=== PATIENT | male | born 1965 | race Caucasian/White ===

== ENCOUNTER 2017-11-03 09:40 | Day surgery (SDC) | payer OTHER ==
[~2017-11-03 09:40] MED LIST: LIDOCAINE 2% MDV 20 ML VIAL As Ordered; PROPOFOL 200 MG/20 ML VIAL As Ordered
[2017-11-03] MEDS: NS 1,000 ML IV (10:10)
== END 2017-11-03 11:45 | disposition home or self-care (01) ==
LOC: M OPP 09:40
DX: Z12.11 Encounter for screening for malignant neoplasm of colon (principal); D12.5 Benign neoplasm of sigmoid colon; K62.1 Rectal polyp; K64.0 First degree hemorrhoids; I10 Essential (primary) hypertension; E11.9 Type 2 diabetes mellitus without complications; J45.909 Unspecified asthma, uncomplicated; Z79.899 Other long term (current) drug therapy
CPT/HCPCS: 45385

== ENCOUNTER → 2022-11-08 | Outpatient (CLI) | payer OTHER ==
[~2022-11-08] MED LIST changes: +FARX1TAB3 PO; +GLIP5TAB20 PO; +INSU100I34 SQ; +JANU100T PO; -LIDOCAINE 2% MDV 20 ML VIAL As Ordered; +LISI10TA22 PO; +METF10004 PO; +PANT40TA29 PO; -PROPOFOL 200 MG/20 ML VIAL As Ordered
== END ==
LOC: M LABSMTC 11:00
PROVIDERS: ATTEND Anesthesiology
DX: Z01.812 Encounter for preprocedural laboratory examination (principal); Z11.52 Encounter for screening for COVID-19

== ENCOUNTER 2022-11-11 09:19 | Day surgery (SDC) | payer OTHER ==
[~2022-11-11] VITALS: Ht 170.2 cm; Wt 94.3 kg
[~2022-11-11 09:19] MED LIST changes: +NS 1,000 ML IV ONE
[2022-11-11] MEDS ORDERED: LIDOCAINE 2% 100MG/5ML SDV (FOR ANES.) As Ordered ONE (11:01)
[2022-11-11] MEDS ORDERED: propofoL 200 MG/20 ML VIAL As Ordered ONE (11:01)
[2022-11-11] MEDS ORDERED: fentaNYL 100 MCG/2 ML INJECTION As Ordered ONE (11:01)
[2022-11-11 11:35] VITALS: BP 147/76
== END 2022-11-11 11:46 | disposition home or self-care (01) ==
LOC: M OPP 09:19
PROVIDERS: ATTEND Surgery
DX: Z12.11 Encounter for screening for malignant neoplasm of colon (principal); Z86.010 Personal history of colon polyps; D12.3 Benign neoplasm of transverse colon; K29.70 Gastritis, unspecified, without bleeding; Z79.4 Long term (current) use of insulin; Z79.899 Other long term (current) drug therapy; I10 Essential (primary) hypertension; E11.9 Type 2 diabetes mellitus without complications; Z80.41 Family history of malignant neoplasm of ovary
CPT/HCPCS: 43239; 45380; 88305; J3010